=== PATIENT | female | born 1980 | race Caucasian/White ===

== ENCOUNTER 2019-08-20 10:58 | Emergency (ER) | payer MEDICAID ==
[~2019-08-20] VITALS: Ht 167.6 cm; Wt 95.5 kg
[~2019-08-20 10:58] MED LIST: NO HOME MEDS
[2019-08-20] MEDS ORDERED: LORazepam 2 mg/ml vial IV ONE (11:05)
[2019-08-20] MEDS ORDERED: normal saline 1000ML IV soln IVB ONE ×2 (11:05→11:25)
[2019-08-20 11:19] LABS: BASOPHILS % (AUTO) 0.2 % (0-1); EOSINOPHILS # (AUTO) 0.2 X10'3 (0-0.9); EOSINOPHILS % (AUTO) 2.5 % (0-6); HEMATOCRIT 46.8 % (35.0-45.0); HEMOGLOBIN 16.1 g/dl (12.0-16.0); LYMPHOCYTES # (AUTO) 3.5 X10'3 (1.1-4.8); LYMPHOCYTES % (AUTO) 35.6 % (21-51); MEAN CORPUSCULAR HEMOGLOBIN 31.3 PG (27.0-31.0); MEAN CORPUSCULAR HGB CONC 34.4 g/dL (33.0-36.5); MEAN CORPUSCULAR VOLUME 91.2 FL (78-98); MEAN PLATELET VOLUME 8.1 FL (7.4-10.4); MONOCYTES # (AUTO) 0.6 X10'3 (0-0.9); MONOCYTES % (AUTO) 6.4 % (2-12); NEUTROPHILS # (AUTO) 5.4 X10'3 (1.8-7.7); NEUTROPHILS % (AUTO) 55.3 % (42-75); PLATELET COUNT 229 X10'3 (140-440); RED BLOOD COUNT 5.14 X10'6 (4.20-5.60); RED CELL DISTRIBUTION WIDTH 12.6 % (11.5-14.5); WHITE BLOOD COUNT 9.7 X10'3 (4.5-11.0)
[2019-08-20] MEDS ORDERED: magnesium 2GM in 50ml NS 50 ML IV ONE (11:20)
[2019-08-20] MEDS ORDERED: potassium Cl 10 mEq/100mL bag IV ONE (11:20)
[2019-08-20] MEDS ORDERED: ondansetron/PF 4mg/2ml inj IV ONE (11:20)
[2019-08-20] MEDS ORDERED: dexamethasone sod phosphate 10mg/ml inj IV STA (11:29)
[2019-08-20 11:31] LABS: PARTIAL THROMBOPLASTIN TIME 29 SECONDS (22-32)
[2019-08-20 11:33] LABS: ALANINE AMINOTRANSFERASE 28 U/L (12-78); ALBUMIN 4.4 G/DL (3.4-5.0); ALBUMIN/GLOBULIN RATIO 1.1 (1.1-1.5); ALKALINE PHOSPHATASE 92 IU/L (46-116); ANION GAP 13 (8-16); ASPARTATE AMINO TRANSFERASE 22 U/L (10-37); BILIRUBIN,TOTAL 1.2 MG/DL (0.1-1.0); BLOOD UREA NITROGEN 12 MG/DL (7-18); BUN/CREATININE RATIO 11.3 (6.6-38.0); CALCIUM 8.9 MG/DL (8.5-10.1); CHLORIDE 102 MMOL/L (99-107); CREATININE 1.06 MG/DL (0.40-0.90); GLUCOSE 115 MG/DL (70-104); POTASSIUM 3.1 MMOL/L (3.5-5.1); SODIUM 138 MMOL/L (135-145); TOTAL CARBON DIOXIDE 22.9 MMOL/L (24-32); TOTAL PROTEIN 8.4 G/DL (6.4-8.2); eGFR 58 ML/MIN
[2019-08-20 11:37] LABS: TROPONIN I < 0.04 NG/ML (0.0-0.05)
[2019-08-20] MEDS ORDERED: iohexol 350MG/ML 100ml bottle IV ONE (11:41)
[2019-08-20] MEDS ORDERED: metoprolol tartrate 1mg/ml inj IV ONE (11:45)
--- NOTE | 2019-08-20 11:45 | NUR ---
pt contact information: Manjinder mcmullen [phone]
[2019-08-20] MEDS ORDERED: metoclopramide 5 mg/ml inj IV ONE (12:05)
[2019-08-20] MEDS ORDERED: ketorolac trometh. 30mg/ml inj. IV ONE (13:15)
[2019-08-20 14:42] VITALS: BP 148/95
== END 2019-08-20 14:38 | disposition home or self-care (01) ==
LOC: ER 10:59
DX: G45.3 Amaurosis fugax (principal); G43.109 Migraine with aura, not intractable, without status migrainosus; Z98.890 Other specified postprocedural states
CPT/HCPCS: 36415; 70450; 70496; 70498; 71045; 80053; 84484; 85025; 85610; 85730; 93005; 96365; 96366; 96375; 99291; J1100; J1885; J2060; J2405; J2765; J3475; J3480; J7030; Q9967; J3490